=== PATIENT | female | born 1955 | race African-American/Black ===

== ENCOUNTER 2018-11-14 12:02 | Inpatient (IN) ==
[2018-11-14] MEDS ORDERED: PIPERACILLIN/TAZOBACTAM 3,375 MG in SODIUM CHLORIDE 0.9% 100 ML IV STA (14:11)
[2018-11-14 14:47] LABS: Basophils % 0.4 % (0.0-0.8); Eosinophils # 0.3 10*3/uL (0.0-0.87); Eosinophils % 2.9 % (0.00-10.9); Hematocrit 29.8 VOL% (35.7-47.0); Hemoglobin 8.6 GM/DL (12.0-16.0); Immature Granulocytes % 0.5 %; Immature Granulocytes Absolute 0.04 #; Lymphocytes % 23.1 % (21.3-54.2); Mean Corpuscular HGB Conc 28.9 GM/DL (32-36); Mean Corpuscular Hemoglobin 21 PG (27-34); Mean Corpuscular Volume 72.3 FL (87-102); Mean Platelet Volume 10.5 FL (9.6-12.0); Monocytes # 0.8 10*3/uL (0.11-0.8); Monocytes % 9.5 % (1.7-12.7); Neutrophils # 5.5 10*3/uL (1.4-7.4); Neutrophils % 63.6 % (38.7-73.9); Platelet Count 453 T/CUMM (130-400); Red Blood Count 4.12 MC/CUMM (3.8-5.5); Red Cell Distribution Width 17.6 % (9.3-17.3); White Blood Count 8.6 T/CUMM (4-12)
[2018-11-14 15:08] LABS: Alanine Aminotransferase 18 U/L (13-56); Alkaline Phosphatase 116 U/L (45-117); Aspartate Amino Transferase 19 U/L (0-37); Bilirubin,Total < 0.39 MG/DL (0.2-1.0); Blood Urea Nitrogen 11 MG/DL (7-18); Calcium 9.2 MG/DL (8.5-10.1); Glucose 214 MG/DL (74-106); Osmolality,Calculated 268.5 MOS/KG (273-304); Potassium 4.1 MMOL/L (3.5-5.1); Sodium 132 MMOL/L (136-145); Total Protein 8.2 G/DL (6.4-8.3)
[2018-11-14] MEDS ORDERED: ONDANSETRON 4 MG/2 ML VIAL IV STA (15:13)
[2018-11-14] MEDS ORDERED: ONDANSETRON 4 MG/2 ML VIAL IV PRN (17:51)
[2018-11-14] MEDS ORDERED: DICLOFENAC SODIUM 75 MG TABLET PO PRN ×2 (17:51→20:00)
[2018-11-14] MEDS ORDERED: ONDANSETRON 4 MG TABLET PO PRN (17:51)
[2018-11-14] MEDS ORDERED: GLUCAGON 1 MG VIAL IM PRN (17:51)
[2018-11-14] MEDS ORDERED: FUROSEMIDE 20 MG TABLET PO PRN (17:51)
[2018-11-14] MEDS ORDERED: DEXTROSE 50% 25 GM/50 ML SYRINGE IV PRN (17:51)
[2018-11-14] MEDS ORDERED: HYDROmorphone 2 MG/1 ML VIAL IV PRN (17:51)
[2018-11-14] MEDS: LACTATED RINGERS 1,000 ML IV SCH (18:57)
[2018-11-14] MEDS: SUCRALFATE 1 GM TABLET PO SCH ×2 (19:03→21:35)
[2018-11-14] MEDS: INSULIN REGULAR 100 UNIT/ML SUBCUT SCH ×2 (19:05→21:40)
[2018-11-14] MEDS: PIPERACILLIN/TAZOBACTAM 3,375 MG in SODIUM CHLORIDE 0.9% 100 ML IV SCH (20:33)
[2018-11-14] MEDS: ATORVASTATIN 20 MG TABLET PO SCH (21:41)
[2018-11-14] MEDS: HYDROmorphone 2 MG/1 ML VIAL IV PRN (23:31)
[2018-11-15] MEDS: PIPERACILLIN/TAZOBACTAM 3,375 MG in SODIUM CHLORIDE 0.9% 100 ML IV SCH ×3 (04:50→20:26)
[2018-11-15] MEDS: LACTATED RINGERS 1,000 ML IV SCH ×2 (04:50→10:50)
[2018-11-15 05:20] LABS: Basophils % 0.4 % (0.0-0.8); Eosinophils # 0.2 10*3/uL (0.0-0.87); Eosinophils % 2.7 % (0.00-10.9); Hematocrit 26.5 VOL% (35.7-47.0); Hemoglobin 7.7 GM/DL (12.0-16.0); Immature Granulocytes % 1.3 %; Lymphocytes # 1.4 10*3/uL (1.4-4.0); Lymphocytes % 17.8 % (21.3-54.2); Mean Corpuscular HGB Conc 29.1 GM/DL (32-36); Mean Corpuscular Hemoglobin 21 PG (27-34); Mean Corpuscular Volume 72.2 FL (87-102); Mean Platelet Volume 10.7 FL (9.6-12.0); Monocytes # 0.8 10*3/uL (0.11-0.8); Monocytes % 10.5 % (1.7-12.7); Neutrophils # 5.3 10*3/uL (1.4-7.4); Neutrophils % 67.3 % (38.7-73.9); Platelet Count 396 T/CUMM (130-400); Red Blood Count 3.67 MC/CUMM (3.8-5.5); Red Cell Distribution Width 17.5 % (9.3-17.3); White Blood Count 7.9 T/CUMM (4-12)
[2018-11-15 05:25] LABS: Calcium 8.7 MG/DL (8.5-10.1); Osmolality,Calculated 271.2 MOS/KG (273-304); Potassium 4.2 MMOL/L (3.5-5.1)
[2018-11-15] MEDS: LEVOTHYROXINE 175 MCG TABLET PO SCH (06:23)
[2018-11-15] MEDS: SUCRALFATE 1 GM TABLET PO SCH ×4 (07:38→20:26)
[2018-11-15] MEDS: INSULIN REGULAR 100 UNIT/ML SUBCUT SCH ×4 (10:08→20:28)
[2018-11-15] MEDS: ENOXAPARIN 40 MG/0.4 ML SYRINGE SUBCUT SCH (10:24)
[2018-11-15] MEDS: amLODIPine 5 MG TABLET PO SCH (10:25)
[2018-11-15] MEDS: PANTOPRAZOLE 40 MG TABLET PO SCH (10:25)
[2018-11-15] MEDS: ASPIRIN EC 81 MG TABLET PO SCH (10:25)
[2018-11-15] MEDS: ACETAMINOPHEN 325 MG TABLET PO PRN (16:02)
[2018-11-15] MEDS: ATORVASTATIN 20 MG TABLET PO SCH (20:26)
[2018-11-16] MEDS: LACTATED RINGERS 1,000 ML IV SCH ×4 (02:00→18:34)
[2018-11-16] MEDS: PIPERACILLIN/TAZOBACTAM 3,375 MG in SODIUM CHLORIDE 0.9% 100 ML IV SCH ×3 (03:20→20:17)
[2018-11-16] MEDS: ACETAMINOPHEN 325 MG TABLET PO PRN (03:22)
[2018-11-16 05:00] LABS: Basophils % 0.4 % (0.0-0.8); Eosinophils # 0.2 10*3/uL (0.0-0.87); Eosinophils % 3.1 % (0.00-10.9); Hematocrit 26.2 VOL% (35.7-47.0); Hemoglobin 7.5 GM/DL (12.0-16.0); Immature Granulocytes % 0.4 %; Immature Granulocytes Absolute 0.03 #; Lymphocytes # 1.4 10*3/uL (1.4-4.0); Mean Corpuscular HGB Conc 28.6 GM/DL (32-36); Mean Corpuscular Hemoglobin 21 PG (27-34); Mean Corpuscular Volume 71.6 FL (87-102); Monocytes # 0.9 10*3/uL (0.11-0.8); Monocytes % 11.9 % (1.7-12.7); Neutrophils # 5.2 10*3/uL (1.4-7.4); Neutrophils % 66.2 % (38.7-73.9); Platelet Count 397 T/CUMM (130-400); Red Blood Count 3.66 MC/CUMM (3.8-5.5); Red Cell Distribution Width 17.3 % (9.3-17.3); White Blood Count 7.8 T/CUMM (4-12)
[2018-11-16 05:27] LABS: Calcium 8.6 MG/DL (8.5-10.1); Osmolality,Calculated 276.2 MOS/KG (273-304); Potassium 4.2 MMOL/L (3.5-5.1)
[2018-11-16] MEDS: LEVOTHYROXINE 175 MCG TABLET PO SCH (06:24)
[2018-11-16] MEDS: ENOXAPARIN 40 MG/0.4 ML SYRINGE SUBCUT SCH (09:01)
[2018-11-16] MEDS: SUCRALFATE 1 GM TABLET PO SCH ×4 (09:02→20:18)
[2018-11-16] MEDS: INSULIN REGULAR 100 UNIT/ML SUBCUT SCH ×3 (09:02→18:33)
[2018-11-16] MEDS: amLODIPine 5 MG TABLET PO SCH (09:02)
[2018-11-16] MEDS: ASPIRIN EC 81 MG TABLET PO SCH (09:02)
[2018-11-16] MEDS: PANTOPRAZOLE 40 MG TABLET PO SCH (09:02)
[2018-11-16] MEDS: ATORVASTATIN 20 MG TABLET PO SCH (20:18)
[2018-11-17] MEDS: INSULIN REGULAR 100 UNIT/ML SUBCUT SCH ×5 (00:21→21:04)
[2018-11-17] MEDS: ACETAMINOPHEN 325 MG TABLET PO PRN (04:18)
[2018-11-17] MEDS: PIPERACILLIN/TAZOBACTAM 3,375 MG in SODIUM CHLORIDE 0.9% 100 ML IV SCH ×3 (04:19→21:03)
[2018-11-17] MEDS: LEVOTHYROXINE 175 MCG TABLET PO SCH (06:38)
[2018-11-17] MEDS: LACTATED RINGERS 1,000 ML IV SCH ×2 (07:19→11:43)
[2018-11-17] MEDS: SUCRALFATE 1 GM TABLET PO SCH ×4 (09:12→21:03)
[2018-11-17] MEDS: amLODIPine 5 MG TABLET PO SCH (09:12)
[2018-11-17] MEDS: PANTOPRAZOLE 40 MG TABLET PO SCH (09:12)
[2018-11-17] MEDS: ENOXAPARIN 40 MG/0.4 ML SYRINGE SUBCUT SCH (09:13)
[2018-11-17] MEDS: ASPIRIN EC 81 MG TABLET PO SCH (09:13)
[2018-11-17] MEDS ORDERED: IBUPROFEN 400 MG TABLET PO PRN (13:03)
[2018-11-17] MEDS ORDERED: FLUCONAZOLE 200 MG TABLET PO ONE (13:52)
[2018-11-17] MEDS: ATORVASTATIN 20 MG TABLET PO SCH (23:31)
[2018-11-18] MEDS: PIPERACILLIN/TAZOBACTAM 3,375 MG in SODIUM CHLORIDE 0.9% 100 ML IV SCH ×3 (03:53→19:59)
[2018-11-18] MEDS: LEVOTHYROXINE 175 MCG TABLET PO SCH (06:26)
[2018-11-18] MEDS: INSULIN REGULAR 100 UNIT/ML SUBCUT SCH ×4 (08:42→20:07)
[2018-11-18] MEDS: SUCRALFATE 1 GM TABLET PO SCH ×4 (08:42→20:09)
[2018-11-18] MEDS: ENOXAPARIN 40 MG/0.4 ML SYRINGE SUBCUT SCH (08:43)
[2018-11-18] MEDS: ASPIRIN EC 81 MG TABLET PO SCH (08:43)
[2018-11-18] MEDS: amLODIPine 5 MG TABLET PO SCH (08:44)
[2018-11-18] MEDS: PANTOPRAZOLE 40 MG TABLET PO SCH (08:44)
[2018-11-18] MEDS: LACTATED RINGERS 1,000 ML IV SCH ×4 (10:24→20:01)
[2018-11-18] MEDS: ACETAMINOPHEN 325 MG TABLET PO PRN (14:23)
[2018-11-18] MEDS: ATORVASTATIN 20 MG TABLET PO SCH (20:10)
[2018-11-19] MEDS: PIPERACILLIN/TAZOBACTAM 3,375 MG in SODIUM CHLORIDE 0.9% 100 ML IV SCH ×2 (04:28→13:41)
[2018-11-19 05:33] LABS: Potassium 3.8 MMOL/L (3.5-5.1)
[2018-11-19] MEDS: LEVOTHYROXINE 175 MCG TABLET PO SCH (06:10)
[2018-11-19 06:34] LABS: Basophils % 0.6 % (0.0-0.8); Eosinophils # 0.4 10*3/uL (0.0-0.87); Eosinophils % 7.2 % (0.00-10.9); Hematocrit 27.1 VOL% (35.7-47.0); Immature Granulocytes % 0.4 %; Immature Granulocytes Absolute 0.02 #; Lymphocytes # 1.7 10*3/uL (1.4-4.0); Lymphocytes % 35.7 % (21.3-54.2); Mean Corpuscular HGB Conc 28.4 GM/DL (32-36); Mean Corpuscular Hemoglobin 21 PG (27-34); Mean Corpuscular Volume 72.8 FL (87-102); Monocytes # 0.5 10*3/uL (0.11-0.8); Neutrophils # 2.3 10*3/uL (1.4-7.4); Neutrophils % 46.1 % (38.7-73.9); Platelet Count 387 T/CUMM (130-400); Red Blood Count 3.72 MC/CUMM (3.8-5.5); Red Cell Distribution Width 17.6 % (9.3-17.3); White Blood Count 4.9 T/CUMM (4-12)
[2018-11-19 06:36] LABS: Hemoglobin 7.7 GM/DL (12.0-16.0)
[2018-11-19 06:39] LABS: Hypochromasia 1+; Ovalocytes Slight; Platelet Estimate Adequate
[2018-11-19] MEDS: LACTATED RINGERS 1,000 ML IV SCH ×2 (07:12→09:51)
[2018-11-19] MEDS: SUCRALFATE 1 GM TABLET PO SCH ×4 (07:30→17:03)
[2018-11-19] MEDS: amLODIPine 5 MG TABLET PO SCH (08:43)
[2018-11-19] MEDS: INSULIN REGULAR 100 UNIT/ML SUBCUT SCH ×3 (08:43→17:00)
[2018-11-19] MEDS: ASPIRIN EC 81 MG TABLET PO SCH (13:39)
[2018-11-19] MEDS: ENOXAPARIN 40 MG/0.4 ML SYRINGE SUBCUT SCH (13:39)
[2018-11-19] MEDS: PANTOPRAZOLE 40 MG TABLET PO SCH (13:40)
[2018-11-19] MEDS ORDERED: CETIRIZINE 10 MG TABLET PO PRN (14:15)
[2018-11-19] MEDS: HYDROmorphone 2 MG/1 ML VIAL IV PRN (14:20)
[2018-11-19] MEDS ORDERED: ERTAPENEM 1,000 MG in SODIUM CHLORIDE 0.9% 100 ML IV ONE (15:00)
[2018-11-19] MEDS ORDERED: MEROPENEM 2,000 MG in SODIUM CHLORIDE 0.9% 100 ML IV ONE (16:00)
[2018-11-19 21:11] VITALS: BP 116/57
== END 2018-11-19 21:45 | disposition home health service (06) | DRG 603 ==
LOC: N.ED 12:02 → N.EDINP 14:48 → N.3E 17:21
PROVIDERS: ADMIT Surgery; ATTEND Surgery

== ENCOUNTER 2018-12-31 10:59 | Inpatient (IN) ==
[~2018-12-31 10:59] MED LIST: ALVIMOPAN 12 MG CAPSULE ONE; ALVIMOPAN 12 MG CAPSULE PO ONE; ERTAPENEM 1,000 MG VIAL ONE; ERTAPENEM 1,000 MG in SODIUM CHLORIDE 0.9% 100 ML IV ONE
[2018-12-31 11:55] LABS: Basophils % 0.5 % (0.0-0.8); Eosinophils # 0.3 10*3/uL (0.0-0.87); Eosinophils % 4.2 % (0.00-10.9); Hematocrit 25.3 VOL% (35.7-47.0); Immature Granulocytes % 0.5 %; Immature Granulocytes Absolute 0.03 #; Lymphocytes # 1.9 10*3/uL (1.4-4.0); Lymphocytes % 29.1 % (21.3-54.2); Mean Corpuscular HGB Conc 27.7 GM/DL (32-36); Mean Corpuscular Volume 68.9 FL (87-102); Mean Platelet Volume 10.2 FL (9.6-12.0); Monocytes % 8.8 % (1.7-12.7); Neutrophils % 56.9 % (38.7-73.9); Platelet Count 334 T/CUMM (130-400); Red Blood Count 3.67 MC/CUMM (3.8-5.5); Red Cell Distribution Width 17.6 % (9.3-17.3); White Blood Count 6.5 T/CUMM (4-12)
[2018-12-31 11:56] LABS: Albumin 3.3 G/DL (3.4-5.0); Bilirubin,Total 0.4 MG/DL (0.2-1.0); Calcium 8.9 MG/DL (8.5-10.1); Osmolality,Calculated 279.8 MOS/KG (273-304); Total Protein 7.9 G/DL (6.4-8.3)
[2018-12-31 12:04] LABS: Hypochromasia 2+; Microcytosis 1+; Ovalocytes Slight; Platelet Estimate Normal; Polychromasia Slight; Target Cells Slight
[2018-12-31] MEDS ORDERED: TISSUE ADHESIVE 1 EACH APPLICATOR TOP ONE (12:13)
[2018-12-31] MEDS ORDERED: INDOCYANINE GREEN 25 MG VIAL IV ONE (12:13)
[2018-12-31] MEDS ORDERED: LACTATED RINGERS 1,000 ML IV SCH (13:00)
[2018-12-31] MEDS ORDERED: DIAZEPAM 5 MG TABLET ONE (13:03)
[2018-12-31] MEDS ORDERED: FAMOTIDINE 20 MG TABLET ONE (13:04)
[2018-12-31] MEDS ORDERED: FAMOTIDINE 20 MG TABLET PO STA (13:08)
[2018-12-31] MEDS ORDERED: DIAZEPAM 5 MG TABLET PO STA (13:08)
[2018-12-31] MEDS ORDERED: MORPHINE 10 MG/1 ML VIAL IV PRN (16:46)
[2018-12-31] MEDS ORDERED: ONDANSETRON 4 MG/2 ML VIAL IV PRN ×2 (16:46→20:04)
[2018-12-31] MEDS ORDERED: PROMETHAZINE INJ 25 MG in SODIUM CHLORIDE 0.9% 50 ML IV PRN (16:46)
[2018-12-31] MEDS ORDERED: MEPERIDINE 25 MG/1 ML VIAL IV PRN (16:46)
[2018-12-31] MEDS ORDERED: KETAMINE 500 MG/10 ML VIAL ONE (19:08)
[2018-12-31] MEDS ORDERED: SEVOFLURANE 1 UNIT/15 MINUTE INH ONE (19:10)
[2018-12-31] MEDS ORDERED: DESFLURANE 1 UNIT/15 MINUTE INH ONE (19:10)
[2018-12-31] MEDS ORDERED: MIDAZOLAM 2 MG/2 ML VIAL ONE (19:10)
[2018-12-31] MEDS ORDERED: fentaNYL 100 MCG/2 ML VIAL ONE (19:10)
[2018-12-31] MEDS ORDERED: PROPOFOL 200 MG/20 ML VIAL IV ONE (19:10)
[2018-12-31] MEDS ORDERED: PHENYLEPHRINE 1 MG/10 ML SYRINGE IV ONE (19:11)
[2018-12-31] MEDS ORDERED: SUCCINYLCHOLINE 200 MG/10 ML VIAL ONE (19:11)
[2018-12-31] MEDS ORDERED: MEPERIDINE 25 MG/1 ML VIAL ONE ×2 (19:11)
[2018-12-31] MEDS ORDERED: LACTATED RINGERS 2,000 ML IV ONE (19:11)
[2018-12-31] MEDS ORDERED: ONDANSETRON 4 MG/2 ML VIAL ONE ×2 (19:11)
[2018-12-31] MEDS ORDERED: PROMETHAZINE 25 MG/1 ML VIAL ONE (19:11)
[2018-12-31] MEDS ORDERED: NEOSTIGMINE 10 MG/10 ML VIAL ONE (19:11)
[2018-12-31] MEDS ORDERED: GLYCOPYRROLATE 0.4 MG/2 ML VIAL ONE ×2 (19:11)
[2018-12-31] MEDS ORDERED: SODIUM CHLORIDE 0.9% 2,000 ML IV ONE (19:11)
[2018-12-31] MEDS ORDERED: ePHEDrine 50 MG/ML AMP ONE (19:11)
[2018-12-31] MEDS ORDERED: ACETAMINOPHEN 1,000 MG/100 ML VIAL IV ONE (19:11)
[2018-12-31] MEDS ORDERED: ROCURONIUM 100 MG/10 ML VIAL IV ONE (19:11)
[2018-12-31] MEDS ORDERED: DEXAMETHASONE 4 MG/1 ML VIAL ONE (19:11)
[2018-12-31 19:35] LABS: Basophils % 0.2 % (0.0-0.8); Eosinophils # 0.1 10*3/uL (0.0-0.87); Eosinophils % 0.6 % (0.00-10.9); Hematocrit 24.6 VOL% (35.7-47.0); Hemoglobin 6.9 GM/DL (12.0-16.0); Immature Granulocytes % 0.7 %; Immature Granulocytes Absolute 0.07 #; Lymphocytes # 1.5 10*3/uL (1.4-4.0); Lymphocytes % 13.6 % (21.3-54.2); Mean Corpuscular Volume 71.7 FL (87-102); Monocytes % 6.8 % (1.7-12.7); Neutrophils % 78.1 % (38.7-73.9); Platelet Count 276 T/CUMM (130-400); Red Blood Count 3.43 MC/CUMM (3.8-5.5); Red Cell Distribution Width 19.3 % (9.3-17.3); White Blood Count 10.7 T/CUMM (4-12)
[2018-12-31] MEDS ORDERED: DEXTROSE 50% 25 GM/50 ML SYRINGE IV PRN (20:04)
[2018-12-31] MEDS ORDERED: PROMETHAZINE 25 MG/1 ML VIAL IM PRN (20:04)
[2018-12-31] MEDS ORDERED: GLUCAGON 1 MG VIAL IM PRN (20:04)
[2018-12-31] MEDS ORDERED: DICLOFENAC SODIUM 75 MG TABLET PO PRN (20:04)
[2018-12-31] MEDS ORDERED: CETIRIZINE 10 MG TABLET PO PRN (20:04)
[2018-12-31] MEDS: LACTATED RINGERS 1,000 ML IV SCH (20:16)
[2018-12-31 21:22] LABS: Basophils % 0.1 % (0.0-0.8); Eosinophils % 0.1 % (0.00-10.9); Hematocrit 26.7 VOL% (35.7-47.0); Hemoglobin 7.5 GM/DL (12.0-16.0); Immature Granulocytes % 0.7 %; Immature Granulocytes Absolute 0.08 #; Lymphocytes % 8.6 % (21.3-54.2); Mean Corpuscular HGB Conc 28.1 GM/DL (32-36); Mean Corpuscular Volume 71.6 FL (87-102); Mean Platelet Volume 9.7 FL (9.6-12.0); Monocytes % 5.1 % (1.7-12.7); Neutrophils % 85.4 % (38.7-73.9); Platelet Count 288 T/CUMM (130-400); Red Blood Count 3.73 MC/CUMM (3.8-5.5); Red Cell Distribution Width 19.1 % (9.3-17.3); White Blood Count 11.6 T/CUMM (4-12)
[2018-12-31 21:41] LABS: Calcium 8.6 MG/DL (8.5-10.1); Osmolality,Calculated 281.5 MOS/KG (273-304)
[2018-12-31] MEDS: ATORVASTATIN 20 MG TABLET PO SCH (22:15)
[2018-12-31] MEDS: ALVIMOPAN 12 MG CAPSULE PO SCH (22:15)
[2018-12-31] MEDS: SUCRALFATE 1 GM TABLET PO SCH (22:15)
[2018-12-31] MEDS: DICLOFENAC 1% GEL 100 GM TUBE TOP SCH (22:20)
[2019-01-01] MEDS: INSULIN REGULAR 100 UNIT/ML SUBCUT SCH ×5 (04:10→21:49)
[2019-01-01] MEDS: KETOROLAC 15 MG/1 ML VIAL IV SCH ×5 (04:11→21:45)
[2019-01-01] MEDS: LACTATED RINGERS 1,000 ML IV SCH ×3 (04:43→23:41)
[2019-01-01 06:21] LABS: Basophils % 0.2 % (0.0-0.8); Hematocrit 32.2 VOL% (35.7-47.0); Hemoglobin 9.2 GM/DL (12.0-16.0); Immature Granulocytes % 0.7 %; Immature Granulocytes Absolute 0.12 #; Lymphocytes # 0.6 10*3/uL (1.4-4.0); Lymphocytes % 3.9 % (21.3-54.2); Mean Corpuscular HGB Conc 28.6 GM/DL (32-36); Mean Corpuscular Volume 72.9 FL (87-102); Monocytes % 4.5 % (1.7-12.7); Neutrophils % 90.7 % (38.7-73.9); Platelet Count 296 T/CUMM (130-400); Red Blood Count 4.42 MC/CUMM (3.8-5.5); Red Cell Distribution Width 19.7 % (9.3-17.3); White Blood Count 16.6 T/CUMM (4-12)
[2019-01-01 06:32] LABS: Calcium 9.2 MG/DL (8.5-10.1); Osmolality,Calculated 277.8 MOS/KG (273-304)
[2019-01-01 06:44] LABS: Band Neutrophils 9 % (0-10); Hypochromasia 1+; Lymphocytes 4 % (20-55); Ovalocytes Slight; Platelet Estimate Adequate; Segmented Neutrophils 85 % (50-85); Total Cells Counted 100
[2019-01-01] MEDS: LEVOTHYROXINE 175 MCG TABLET PO SCH (06:48)
[2019-01-01] MEDS: MORPHINE 4 MG/1 ML VIAL IV PRN ×2 (07:54→15:37)
[2019-01-01] MEDS: amLODIPine 5 MG TABLET PO SCH (08:49)
[2019-01-01] MEDS: ASPIRIN EC 81 MG TABLET PO SCH (08:49)
[2019-01-01] MEDS: GABAPENTIN 100 MG CAPSULE PO SCH (08:49)
[2019-01-01] MEDS: ALVIMOPAN 12 MG CAPSULE PO SCH ×2 (08:49→21:45)
[2019-01-01] MEDS: SUCRALFATE 1 GM TABLET PO SCH ×4 (08:49→21:49)
[2019-01-01] MEDS: DICLOFENAC 1% GEL 100 GM TUBE TOP SCH ×4 (08:51→21:45)
[2019-01-01] MEDS ORDERED: ENOXAPARIN 40 MG/0.4 ML SYRINGE SUBCUT SCH (13:00)
[2019-01-01] MEDS: ATORVASTATIN 20 MG TABLET PO SCH (21:49)
[2019-01-02] MEDS: KETOROLAC 15 MG/1 ML VIAL IV SCH ×2 (02:25→08:12)
[2019-01-02] MEDS: LACTATED RINGERS 1,000 ML IV SCH (03:05)
[2019-01-02 06:21] LABS: Basophils % 0.3 % (0.0-0.8); Hemoglobin 8.5 GM/DL (12.0-16.0)
[2019-01-02] MEDS: LEVOTHYROXINE 175 MCG TABLET PO SCH (06:22)
[2019-01-02 06:28] LABS: Eosinophils % 0.2 % (0.00-10.9); Hematocrit 29.5 VOL% (35.7-47.0); Immature Granulocytes Absolute 0.14 #; Lymphocytes % 7.2 % (21.3-54.2); Mean Corpuscular HGB Conc 28.8 GM/DL (32-36); Mean Corpuscular Volume 71.4 FL (87-102); Mean Platelet Volume 9.8 FL (9.6-12.0); Monocytes % 6.8 % (1.7-12.7); Neutrophils % 84.5 % (38.7-73.9); Platelet Count 282 T/CUMM (130-400); Red Blood Count 4.13 MC/CUMM (3.8-5.5); White Blood Count 14.5 T/CUMM (4-12)
[2019-01-02 06:35] LABS: Albumin 2.8 G/DL (3.4-5.0); Bilirubin,Total 0.6 MG/DL (0.2-1.0); Osmolality,Calculated 271.1 MOS/KG (273-304); Total Protein 7.4 G/DL (6.4-8.3)
[2019-01-02 06:39] LABS: Anisocytosis 1+; Microcytosis 1+
[2019-01-02 06:40] LABS: Hypochromasia 1+; Ovalocytes Slight; Platelet Estimate Normal; Polychromasia Slight; Target Cells Slight
[2019-01-02] MEDS: INSULIN REGULAR 100 UNIT/ML SUBCUT SCH ×2 (07:46→11:16)
[2019-01-02 08:06] VITALS: BP 169/76
[2019-01-02] MEDS: ALVIMOPAN 12 MG CAPSULE PO SCH (08:12)
[2019-01-02] MEDS: amLODIPine 5 MG TABLET PO SCH (08:12)
[2019-01-02] MEDS: GABAPENTIN 100 MG CAPSULE PO SCH (08:12)
[2019-01-02] MEDS: ASPIRIN EC 81 MG TABLET PO SCH (08:12)
[2019-01-02] MEDS: SUCRALFATE 1 GM TABLET PO SCH ×2 (08:13→10:37)
[2019-01-02] MEDS: DICLOFENAC 1% GEL 100 GM TUBE TOP SCH (08:13)
== END 2019-01-02 12:25 | disposition home or self-care (01) | DRG 330 ==
LOC: N.SDSINP 10:59 → N.OR 10:59 → N.SDSINP 11:01 → EDSTATUS 14:15 → N.3E 19:28 → N.OR 01-02 12:25 → N.3E 01-07 14:33
PROVIDERS: ADMIT Surgery; ATTEND Surgery